=== PATIENT | female | born 1995 | race Caucasian/White ===

== ENCOUNTER 2018-02-23 12:28 | Emergency (ER) | payer OTHER ==
[2018-02-23 13:36] LABS: HEMOGLOBIN 15.1 G/DL (11.9-15.5); MCH 29.5 PG (29.0-34.0); MCHC 33.6 G/DL (30.0-36.0); MCV 88.1 FL (83-99); PLATELET COUNT 284 K/uL (156-360); RBC DIS.WIDTH-CV 11.6 % (11.8-14.6); RBC DIS.WIDTH-SD 37.3 % (39-53); RED BLOOD COUNT 5.11 M/uL (3.80-5.20); WHITE BLOOD COUNT 8.9 K/uL (4.1-10.2)
[2018-02-23 13:46] LABS: ALBUMIN 4.7 g/dL (3.2-4.8); CHLORIDE 106 mEq/L (99-109); POTASSIUM 3.7 mEq/L (3.7-5.4); SODIUM 140 mEq/L (136-147)
[2018-02-23 13:48] LABS: GLUCOSE 119 mg/dL (70-99); TOTAL PROTEIN 7.9 g/dL (6.4-8.3)
[2018-02-23 13:50] LABS: TOTAL BILIRUBIN 0.5 mg/dL (0.0-1.0)
[2018-02-23 13:52] LABS: ALKALINE PHOSPHATASE 78 IU/L (3-129); CREATININE 0.9 mg/dL (0.6-1.3); GFR ESTIMATE (CALCULATED) > 59 mL/min/
[2018-02-23 13:53] LABS: UREA NITROGEN (BUN) 10 mg/dL (9-23)
[2018-02-23 13:54] LABS: AST (GOT) 15 IU/L (2-34)
[2018-02-23 13:55] LABS: ALT (GPT) 13 IU/L (3-49)
[2018-02-23 14:00] LABS: QUANTITATIVE HCG < 4.0 MIU/ML
[2018-02-23 15:24] VITALS: BP 112/71
== END 2018-02-23 15:25 | disposition home or self-care (01) ==
LOC: EME 12:28
DX: R42 Dizziness and giddiness (principal); I49.8 Other specified cardiac arrhythmias; R94.31 Abnormal electrocardiogram [ECG] [EKG]; Z86.69 Personal history of other diseases of the nervous system and sense organs
CPT/HCPCS: 80053; 81003; 84702; 85027; 93005; 99281; 99284

== ENCOUNTER 2018-04-23 10:55 | Emergency (ER) | payer OTHER ==
[~2018-04-23] VITALS: Ht 177.8 cm; Wt 58.0 kg
[2018-04-23 12:01] LABS: HEMATOCRIT 43.6 % (36.0-46.0); HEMOGLOBIN 14.9 G/DL (11.9-15.5); MCH 29.4 PG (29.0-34.0); MCHC 34.2 G/DL (30.0-36.0); PLATELET COUNT 264 K/uL (156-360); RBC DIS.WIDTH-CV 11.7 % (11.8-14.6); RBC DIS.WIDTH-SD 36.8 % (39-53); RED BLOOD COUNT 5.07 M/uL (3.80-5.20); WHITE BLOOD COUNT 11.1 K/uL (4.1-10.2)
[2018-04-23 12:02] LABS: APPEARANCE CLEAR ((CLEAR)); BILIRUBIN NEGATIVE; BLOOD NEGATIVE; COLOR STRAW ((YELLOW)); GLUCOSE (STRIP) NEGATIVE; KETONES NEGATIVE; LEUKOCYTES NEGATIVE; NITRITE NEGATIVE; PROTEIN (STRIP) NEGATIVE; SPECIFIC GRAVITY 1.012 (1.000-1.030); UCUL ADDED? NO; UROBILINOGEN 0.2 MG/DL (0.2-1.0)
[2018-04-23 12:11] LABS: ALBUMIN 4.3 g/dL (3.2-4.8); CHLORIDE 102 mEq/L (99-109); POTASSIUM 3.6 mEq/L (3.7-5.4); SODIUM 140 mEq/L (136-147)
[2018-04-23 12:14] LABS: GLUCOSE 91 mg/dL (70-99); TOTAL PROTEIN 7.2 g/dL (6.4-8.3)
[2018-04-23 12:15] LABS: TOTAL BILIRUBIN 0.5 mg/dL (0.0-1.0)
[2018-04-23 12:17] LABS: ALKALINE PHOSPHATASE 57 IU/L (3-129); CREATININE 0.9 mg/dL (0.6-1.3); GFR ESTIMATE (CALCULATED) > 59 mL/min/
[2018-04-23 12:18] LABS: UREA NITROGEN (BUN) 11 mg/dL (9-23)
[2018-04-23 12:19] LABS: AST (GOT) 15 IU/L (2-34)
[2018-04-23 12:20] LABS: ALT (GPT) 37 IU/L (3-49)
[2018-04-23 12:27] LABS: QUANTITATIVE HCG < 4.0 MIU/ML
[2018-04-23] MEDS ORDERED: REGLAN10 MG PO (12:32)
[2018-04-23 12:58] VITALS: BP 133/75
[2018-04-23 14:00] LABS: LYME DISEASE SEROLOGY SCREEN NEGATIVE (NEGATIVE)
== END 2018-04-23 13:03 | disposition home or self-care (01) ==
LOC: EME 10:55
PROVIDERS: Physician Assistant
DX: E87.8 Other disorders of electrolyte and fluid balance, not elsewhere classified (principal); R11.0 Nausea; G47.00 Insomnia, unspecified; R53.83 Other fatigue
CPT/HCPCS: 80053; 81003; 84443; 84702; 85027; 86618; 99281; 99285; J2765; J7030